=== PATIENT | male | born 1965 | race Caucasian/White ===

== ENCOUNTER 2016-11-22 13:00 | Emergency (ER) | payer MEDICARE, OTHER ==
[2016-11-22 13:42] LABS: BASO # 0.1 10_X3_uL (0.0-0.1); BASO % 0.9 % (0.2-1.2); EOS # 0.6 10_X3_uL (0.0-0.5); EOS % 10.1 % (0.8-7.0); GRAN # 3.1 10_X3_uL (1.8-5.4); GRAN % 55.4 % (34.0-67.9); HEMATOCRIT 36.2 % (40-51); LYMPH # 1.4 10_X3_uL (1.3-3.6); LYMPH % 25.5 % (21.8-53.1); MEAN CORPUSCULAR HEMOGLOBIN 24.3 pg (27.0-33.0); MEAN CORPUSCULAR HGB CONC 30.4 g/dL (32.0-36.0); MEAN CORPUSCULAR VOLUME 79.9 fL (79-92); MEAN PLATELET VOLUME 10.4 fl (7.5-11.5); MONO # 0.5 10_X3_uL (0.3-0.8); MONO % 8.1 % (5.3-12.2); PLATELET COUNT 314 x10_3/uL (163-337); RED BLOOD COUNT 4.53 x10_6/uL (4.6-6.1); RED CELL DISTRIBUTION WIDTH 16.6 % (11.6-14.4); WHITE BLOOD COUNT 5.5 x10_3/uL (4.2-9.1)
[2016-11-22 13:55] LABS: BLOOD UREA NITROGEN 23 mg/dL (7-18); CALCIUM 9.7 mg/dL (8.7-10.7); CARBON DIOXIDE 30 mmol/L (21-32); CREATINE KINASE 72 U/L (35-232); CREATININE 0.6 mg/dL (0.6-1.3); GLUCOSE,RANDOM 88 mg/dL (70-99); POTASSIUM 4.7 mmol/L (3.5-5.1); SODIUM 140 mmol/L (136-145)
[2016-11-22 15:30] LABS: URINE BILIRUBIN NEGATIVE (NEGATIVE); URINE BLOOD NEGATIVE (NEGATIVE); URINE GLUCOSE (UA) NORMAL (NORMAL); URINE KETONE NEGATIVE (NEGATIVE); URINE LEUKOCYTE ESTERASE TRACE (NEGATIVE); URINE NITRATE NEGATIVE (NEGATIVE); URINE PROTEIN NEGATIVE (NEGATIVE); URINE RBC 0-5 /[HPF] (0-2); URINE SQUAMOUS EPITHELIAL CELL 0-10 /[HPF] (NONE SEEN); URINE WBC 0-5 /[HPF] (0-3)
== END 2016-11-22 15:39 | disposition home or self-care (01) ==
LOC: ER 13:00
PROVIDERS: Family Medicine
DX: D64.9 Anemia, unspecified (principal); R05 Cough; R06.02 Shortness of breath; R51 Headache; J44.9 Chronic obstructive pulmonary disease, unspecified; I10 Essential (primary) hypertension; Z88.2 Allergy status to sulfonamides; Z88.6 Allergy status to analgesic agent; Z79.899 Other long term (current) drug therapy; Z79.1 Long term (current) use of non-steroidal anti-inflammatories (NSAID); Z93.1 Gastrostomy status
CPT/HCPCS: 36415; 71010; 80048; 81001; 82550; 82553; 85025; 93005; 99070; 99284; 99284-25